=== PATIENT | female | born 1980 | race Caucasian/White ===

== ENCOUNTER 2019-01-22 17:26 | Emergency (ER) | payer OTHER ==
[2019-01-22 17:44] VITALS: BP 100/57; PULSE 88; TEMP 97.9; BMI 25.0
--- NOTE | 2019-01-22 18:09 | PDOC ---
History of Present Illness - General Chief Complaint: Pain Stated Complaint: RIGHT LOWER ABDOMINAL PAIN WITH MOVEMENT Time Seen by Provider: 01/22/19 18:08 History Source: Patient Exam Limitations: No Limitations - History of Present Illness Initial Comments: 01/22/19 18:25 Pricila Villa is a 38y previously healthy F presenting w RLQ pain. Sudden onset last night while coughing and sudden movement (sitting up from supine position). Started exercising and lifting past few days. 1st time felt pain, denies prior AB mass/hernia. Took NSAIDs without relief. Denies fever, cough, pyuria, dysuria, urinary frequency, changes in bowel movement. Past History - Past Medical History Allergies/Adverse Reactions: Allergies Allergy/AdvReac Type Severity Reaction Status Date / Time No Known Allergies Allergy Unverified 01/22/19 17:29 Home Medications: Ambulatory Orders NK [No Known Home Medication] 01/22/19 COPD: No - Immunization History Immunization Up to Date: No - Psycho Social/Smoking Cessation Hx Smoking History: Current some day smoker Number of Cigarettes Smoked Daily: 1 Information on smoking cessation initiated: Yes Hx Alcohol Use: Yes (OCCASSIONAL) Drug/Substance Use Hx: Yes (MARIJUANA) Review of Systems - Review of Systems Constitutional: No: Chills, Fever HEENTM: No: Eye Pain, Nose Pain, Throat Pain, Mouth Pain Respiratory: No: Cough, Shortness of Breath Cardiac (ROS): No: Chest Pain, Edema, Lightheadedness, Palpitations ABD/GI: No: Abdominal Distended, Constipated, Diarrhea, Nausea, Vomiting, Abdominal cramping : No: Burning, Dysuria, Discharge, Frequency, Flank Pain, Hematuria Musculoskeletal: No: Back Pain, Gout, Muscle Pain Integumentary: No: Bruising, Dryness, Erythema Neurological: No: Headache, Seizure, Tingling Psychiatric: No: Anxiety, Depression, Stressors Endocrine: No: Excessive Sweating, Flushing, Intolerance to Cold, Intolerance to Heat, Increased Urine Hematologic/Lymphatic: No: Anemia, Blood Clots *Physical Exam - Vital Signs Last Vital Signs Temp Pulse Resp BP Pulse Ox 97.9 F 88 18 100/57 L 100 01/22/19 17:28 01/22/19 17:28 01/22/19 17:28 01/22/19 17:28 01/22/19 17:28 - Physical Exam General Appearance: Yes: Nourished, Appropriately Dressed. No: Apparent Distress HEENT: positive: EOMI, LIZBET, Normal Voice, Hearing Grossly Normal. negative: Scleral Icterus (R), Scleral Icterus (L), Nasal Congestion, Rhinorrhea Respiratory/Chest: positive: Lungs Clear, Normal Breath Sounds. negative: Chest Tender, Crackles, Rales, Rhonchi, Stridor, Wheezing Cardiovascular: positive: Regular Rhythm, Regular Rate, S1, S2. negative: Edema , Murmur Female Pelvic Exam: positive: normal external exam Gastrointestinal/Abdominal: positive: Normal Bowel Sounds, Flat, Soft. negative : Tender, Organomegaly, Protuberent, Distended, Guarding, Rebound, Tenderness, Hernia, Mass Musculoskeletal: negative: CVA Tenderness (R), CVA Tenderness (L) Integumentary: positive: Normal Color Neurologic: positive: Fully Oriented, Alert, Normal Response, Responsive. negative: Numbness, Confused, Disoriented ED Treatment Course - LABORATORY CBC & Chemistry Diagram: 01/22/19 19:00 01/22/19 19:00 Medical Decision Making - Medical Decision Making 01/22/19 18:24 CBC CMP UA Ucx CT A/P tylenol --- Pricila Villa is a 38y previously healthy F presenting w RLQ pain. Likely MSK strain (onset w recent exercise) vs hernia. Rule out UTI vs vs appendicitis. Low concern for ovarian torsion. Given tylenol for pain. Signed out to night team Anticipate DC home Discharge - Discharge Information Problems reviewed: Yes Clinical Impression/Diagnosis: RLQ abdominal pain Condition: Stable - Follow up/Referral Referrals: Dante Santamaria [Primary Care Provider] - - Patient Discharge Instructions - Post Discharge Activity
[2019-01-22] MEDS ORDERED: ACETAMINOPHEN 325 MG TABLET (FP) PO ONE (18:26)
[2019-01-22] MEDS ORDERED: ACETAMINOPHEN 1000 MG/100 ML VIAL (NON FORMULARY) IVPB ONE (18:35)
[2019-01-22] MEDS ORDERED: ACETAMINOPHEN 500 MG TABLET (FP) PO ONE (18:45)
[2019-01-22] MEDS ORDERED: ACETAMINOPHEN 325 MG TABLET (FP) ONE (18:49)
--- NOTE | 2019-01-22 19:00 | PDOC ---
Attending Attestation - Resident Resident Name: Cm Dominguez - ED Attending Attestation I have performed the following: I have examined & evaluated the patient, The case was reviewed & discussed with the resident, I agree w/resident's findings & plan, Exceptions are as noted - HPI HPI: 01/22/19 18:58 38 F with no PMH presents to ED with R lower abdominal pain. Pt states that she has been doing a lot of abdominal exercises recently, and today while doing crunches she had sudden onset RLQ pain. Pt denies N/V. Denies F/C. Denies dysuria. Denies any protruding masses. - Physicial Exam PE: 01/22/19 18:59 "GENERAL: Awake, alert, and fully oriented, in no acute distress. HEAD: No signs of trauma EYES: PERRLA, EOMI, sclera anicteric, conjunctiva clear ENT: Auricles normal inspection, hearing grossly normal, nares patent, oropharynx clear without exudates. Moist mucosa NECK: Nontender, no stepoffs, Normal ROM, supple, no lymphadenopathy, JVD, or masses LUNGS: Breath sounds equal, clear to auscultation bilaterally. No wheezes, and no crackles HEART: Regular rate and rhythm, normal S1 and S2, no murmurs, rubs or gallops ABDOMEN: + RLQ TTP, normoactive bowel sounds. No guarding, no rebound. No masses EXTREMITIES: Normal range of motion, no edema. No clubbing or cyanosis. No cords, erythema, or tenderness NEUROLOGICAL: Cranial nerves II through XII intact. 5/5 strength and sensation in all extremities, Normal speech, normal gait, normal cerebellar function SKIN: Warm, Dry, normal turgor, no rashes or lesions noted. - Medical Decision Making 01/22/19 18:59 38 F with RLQ pain. Likely msk. Will r/o inguinal hernia vs appy. - Labs - CTAP - IVF, tylenol
[2019-01-22 19:08] LABS: BASO % 0.4 % (0-2.0); EOS % 2.5 % (0-4.5); HEMOGLOBIN 12.7 GM/dl (10.7-15.3); MCH 30.6 pg (25.7-33.7); MCHC 33.5 g/dl (32.0-36.0); MEAN CELL VOLUME 91.4 fl (80-96); MEAN PLT VOLUME 9.2 fl (7.5-11.1); MONO % 5.3 % (3.8-10.2); NEUT % 65.8 % (42.8-82.8); PLATELET COUNT 230 K/MM3 (134-434); RBC 4.16 M/mm3 (3.60-5.2); RDW 11.2 % (11.6-15.6); WHITE BLOOD COUNT 9.3 K/mm3 (4.0-10.8)
--- NOTE | 2019-01-22 19:13 | PDOC ---
*Physical Exam - Vital Signs Last Vital Signs Temp Pulse Resp BP Pulse Ox 97.9 F 88 18 100/57 L 100 01/22/19 17:28 01/22/19 17:28 01/22/19 17:28 01/22/19 17:28 01/22/19 17:28 ED Treatment Course - LABORATORY CBC & Chemistry Diagram: 01/22/19 19:00 01/22/19 19:00 - ADDITIONAL ORDERS Additional order review: Laboratory Results 01/22/19 01/22/19 18:43 18:43 Urine Color Yellow Urine Appearance Clear Urine pH 7.5 Urine Protein Negative Urine Glucose (UA) Negative Urine Ketones Negative Urine Blood Negative Urine Nitrite Negative Urine Bilirubin Negative Urine Urobilinogen 0.2 Ur Leukocyte Esterase 1+ Urine HCG, Qual Negative 01/22/19 19:00 RBC 4.16 MCV 91.4 MCHC 33.5 RDW 11.2 L MPV 9.2 Neutrophils % 65.8 Lymphocytes % 26.0 Monocytes % 5.3 Eosinophils % 2.5 Basophils % 0.4 - Medications Given in the ED: ED Medications Discontinued Medications Generic Name Dose Route Start Last Admin Trade Name Vince PRN Reason Stop Dose Admin Acetaminophen 650 mg 01/22/19 18:26 01/22/19 18:47 Tylenol - PO 01/22/19 18:27 Not Given ONCE ONE Acetaminophen 1,000 mg 01/22/19 18:35 01/22/19 18:47 Ofirmev Injection - IVPB 01/22/19 18:36 Not Given ONCE ONE Acetaminophen 975 mg 01/22/19 18:45 01/22/19 18:50 Tylenol - PO 01/22/19 18:46 975 mg ONCE ONE Administration ED Progress Note - Progress Note Progress Note: 01/22/19 19:12 This patient was transferred to ok from Dr. canseco at 1900 hrs. Patient is a 38- year-old female comes in complaining of right lower quadrant pain. Patient is been working out a lot and doing a lot of exercises so most likely this is secondary to musculoskeletal type pain. However patient was significantly tender on Dr. Marin exam so a CAT scan is pending as well as labs. If everything is normal patient will be discharged home. 01/22/19 20:44 CAT scan was negative for any acute pathology. There is a cavernous hemangioma the patient is aware of she has been following it. It does show some small cysts on the right ovary which could possibly be the cause of her pain. I recommended that she take naproxen 2 tablets twice a day and follow-up with her OB. There is also some degenerative disc disease in the L4-L5 and S1 which could also be contributing to her discomfort. Patient discharged home. Discharge - Discharge Information Problems reviewed: Yes Clinical Impression/Diagnosis: RLQ abdominal pain Condition: Stable Disposition: HOME - Admission No - Follow up/Referral Referrals: Dante Santamaria [Primary Care Provider] - - Patient Discharge Instructions Additional Instructions: For the pain take naproxen 2 tablets twice a day with food. Keep your appointment with your OB and follow-up. Review your old records for the liver lesion to make sure it is unchanged. Return to the emergency department immediately with ANY new, persistent or worsening symptoms. Continue any medications as previously prescribed by your physician. You should follow up with your primary doctor as soon as possible regarding today's emergency department visit. . Please make sure your doctor reviews the results of your emergency evaluation. Thank you for coming to the Emergency Department today for your care. It was a pleasure to see you today. Please note that your evaluation is INCOMPLETE until you follow-up with your doctor. - Post Discharge Activity
[2019-01-22 19:20] LABS: ALBUMIN 4.4 g/dl (3.4-5.0); BILIRUBIN,TOTAL 0.4 mg/dl (0.2-1); CALCIUM 8.8 mg/dl (8.5-10); CREATININE 0.8 mg/dl (0.55-1.3); POTASSIUM 3.9 mmol/L (3.5-5.1); TOT PROT 7.1 g/dl (6.4-8.2)
[2019-01-22 19:32] LABS: EPITHELIAL CELLS MODERATE /hpf
== END 2019-01-22 20:51 | disposition home or self-care (01) ==
LOC: FER 17:26
DX: R10.31 Right lower quadrant pain (principal); F17.210 Nicotine dependence, cigarettes, uncomplicated
CPT/HCPCS: 36415; 74177-TC; 80053; 81003; 81015; 84703; 85025; 87086; 99283-25; Q9967